=== PATIENT | male | born 1995 | race Caucasian/White ===

== ENCOUNTER 2024-05-15 14:20 | Emergency (ER) | payer BC, SELFPAY ==
[2024-05-15 14:34] VITALS: BP 144/90
[2024-05-15 14:45] LABS: % Basophils 0.6 % (0-2); % Eosinophils 2.3 % (0-6); % Immature Granulocytes 0.2 % (0-0.5); % Lymphocytes 28.1 % (20.5-51.1); % Monocytes 11.7 % (1.7-9.3); % Neutrophils 57.1 % (42.2-75.2); Absolute Eosinophils 0.2 10^3/uL (0-0.7); Absolute Lymphocytes 1.8 10^3/uL (1.2-3.4); Absolute Monocytes 0.8 10^3/uL (0.1-0.6); Absolute Neutrophils 3.7 10^3/uL (1.4-6.5); Hematocrit 46.4 % (39.0-52.0); Hemoglobin 16.4 g/dL (13.0-18.0); Mean Corp Hgb Conc. 35.3 g/dL (33.0-37.0); Mean Corpuscular Hgb 29.3 pg (27.0-31.0); Mean Platelet Volume 10.3 fL (7.4-10.4); Nucleated Red Blood Cells % 0 % (-); Platelet Count 242 10^3/uL (130-400); Red Blood Cell Count 5.59 10^6/uL (4.70-6.10); Red Cell Dist. Width 12.5 % (11.5-14.5); White Blood Cell Count 6.4 10^3/uL (4.8-10.8)
[2024-05-15 15:03] LABS: ALT (SGPT) 17 U/L (0-50); AST (SGOT) 21 U/L (17-59); Albumin 5.2 g/dl (3.5-5.0); Alkaline Phosphatase 58 U/L (38-126); Blood Urea Nitrogen 16 mg/dl (9-20); Calcium 10.2 mg/dl (8.4-10.2); Carbon Dioxide 29 mmol/L (22-30); Chloride 102 mmol/L (98-107); Glucose 96 mg/dl (70-99); Lipase 57 U/L (23-300); Potassium 4.9 mmol/L (3.5-5.1); Sodium 139 mmol/L (135-145); Total Bilirubin 0.9 mg/dl (0.2-1.3); Total Protein 7.5 g/dl (6.3-8.2); eGFR > 60.00
--- NOTE | 2024-05-15 15:24 | ED.GENMED ---
History of Present Illness
General
Chief Complaint: Abdominal Pain
Source: patient and family
Exam Limitations: none
Time Seen by Provider: 05/15/24 15:23
Nursing documentation reviewed up to this point in time: agreed with
History of Present Illness
History of Present Illness:
Patient is a 29-year-old male with previous appendectomy who presents to the ER for evaluation of upper abdominal pain. Patient reports he has had intermittent pain since Sunday, for the past 4 days. He is a little nauseous with the pain. He pain
is intermittent. It was worse after eating a hamburger on Sunday. He did see urgent care who thought it was gas/reflux. He was prescribed Prilosec which has been taking.
He feels that radiates to his lower back. He denies any urinary frequency urgency. Denies any constipation diarrhea. No prior history of reflux. He presently does not have a family doctor.
He does not smoke. He drinks socially.
Past History
Past History
ED Past Medical History: None
ED Past Surgical History: None
Social History
Tobacco: Non-smoker
Alcohol: Occasional
Drug: None
Personal: Single
Living: with family
Review of Systems
Review of Systems
Allergies reviewed?: Yes
All Other Systems: ROS reviewed and negative except as documented in HPI and ROS
Constitutional: Reports no symptoms; Denies fever
Respiratory: Reports no symptoms
Cardiac: Reports no symptoms
ABD/GI: Reports abdominal pain and nausea; Denies vomiting, diarrhea or constipated
: Reports no symptoms
Musculoskeletal: Reports no symptoms
Skin: Reports no symptoms
Neurological: Reports no symptoms
Psychiatric: Reports no symptoms
Phy Exam
General Physical Exam
General Presentation: no apparent distress
General age: appears stated age
General Skin: warm and dry
General Habitus: normal
General Mental: alert
General Hydration: appears well hydrated
Gastrointestinal Exam
Gastrointestinal Exam: soft, non distended and other (mild epigastric tenderness )
Neurological Exam
Neurological Exam: alert
Musculoskeletal Exam
Musculoskeletal Exam: full ROM
Skin Exam
Skin Exam: normal color and warm/dry
Psychiatric Exam
Psychiatric Exam: normal mood/affect
Course
Orders/Labs/Results
Orders:
Orders
05/15/24 14:36
Electrocardiogram (*1) Urgent
Reason for Study: Abdominal Pain
EKG- Treatment ONCE
05/15/24 14:39
Complete Blood Count/With Diff Urgent
Comprehensive Metabolic Panel Urgent
Lipase Urgent
05/15/24 15:58
US Abdomen Complete/Upper Urgent
Comment:
Reason For Exam: upper abd pain
Abnormal Lab Results
05/15/24
14:39
Absolute Monos (auto) 0.8 H 10^3/uL
(0.1-0.6)
Monocytes % 11.7 H %
(1.7-9.3)
Albumin 5.2 H g/dl
(3.5-5.0)
05/15/24 14:39
05/15/24 14:39
Vital Signs
Initial and Last Documented VS:
Initial Vital Signs
Temp Pulse Resp BP Pulse Ox
97.9 F 75 16 144/90 98
05/15/24 14:34 05/15/24 14:34 05/15/24 14:34 05/15/24 14:34 05/15/24 14:34
Last Documented Vital Signs
Temp Pulse Resp BP Pulse Ox
97.9 F 75 16 144/90 98
05/15/24 14:34 05/15/24 14:34 05/15/24 14:34 05/15/24 14:34 05/15/24 14:34
MDM/Problems Addressed
Differential Diagnosis Includes:
Not limited to reflux, gastritis, biliary colic
MDM/Problems Addressed:
29-year-old male complains of epigastric pain for the past 4 days at times rating to his back. He does however report is more his lower back. He is little nauseous. It was worse after eating a hamburger the other day. He was seen by urgent care
and has been taking Prilosec. He presents awake alert no acute distress very minimal epigastric tenderness he looks well he is nontoxic he denies any fevers and is afebrile here he has normal renal function normal LFTs. Ultrasound was done which
shows gallbladder polyps trace gallbladder sludge but no secondary findings to suggest acute cholecystitis. Patient reports he is feeling better now very minimal discomfort. His mom did get him a new family doctor appointment. Will DC with
surgery as well as GI for possible biliary colic versus reflux. Will have patient continue Prilosec and avoid spicy and fatty foods including caffeine. He is comfortable with this plan of care and is very nontoxic-appearing.
*Radiology
Radiology exam reviewed: radiology read reviewed
*Pulse Oximetry
Patient hypoxic: no
*Critical Care Note
Total Time (30-74mins, 75-104mins- exclusive of procedures): Not Applicable
ED Attending Note
-
Portions of this chart may have been created with voice recognition software.� Occasional wrong word or��sound alike� substitutions may have occurred due to the inherent limitations of voice recognition software.
Discharge Plan
Departure
Patient Disposition: Home (Routine Discharge)
Date of Disposition: 05/15/24
Time of Disposition: 17:57
Patient with high blood pressure during this ER visit?: Yes
Condition: Fair
Covid-19: Not Applicable
Discharge Problem:
Acute upper abdominal pain
Instructions: Abdominal Pain
Prescriptions:
No Action
multivitamin [Daily Multiple] 1 EACH tablet
1 ea PO DAILY
penicillin V potassium 500 MG tablet
500 mg PO BID Qty: 20 0RF
Referrals:
Cassandra Garcia MD [Active] -
Adin Villalba MD [Active] -
NONE,* [Family Provider] -
Activity Restrictions/Additional Instructions:
As discussed continue taking Prilosec.
Follow bland diet avoiding high fatty foods spicy foods caffeine chocolate alcohol.
Follow up with pcp /surgery and GI. please call to make appts. return if any worsening of symptoms
Interventions
Interventions:
*Risk Screen - Suicide Last Done: 05/15/24 15:42
*General Assessment Last Done: 05/15/24 14:34
*Neglect/Abuse Screening Last Done: 05/15/24 15:42
ED- Fall Risk Assessment Last Done: 05/15/24 15:42
*ED COVID-19 Vaccine History Last Done: 05/15/24 14:34
DC-Qvtqtu-Lplmcakhrt Assessment Last Done: 05/15/24 15:42
Discharge Date and Time
Print Language: FAROESE
== END 2024-05-15 18:07 | disposition home or self-care (01) ==
LOC: EMR 14:20
PROVIDERS: Emergency Medicine; EMERGENCY PHYSICIAN Emergency Medicine
DX: R10.10 Upper abdominal pain, unspecified (principal)
CPT/HCPCS: 99284; 76700; 80053; 83690; 85025; 93005